=== PATIENT | female | born 1930 | race Caucasian/White ===

== ENCOUNTER 2017-05-22 15:31 | Inpatient (IN) | payer OTHER, MEDICARE ==
[2017-05-22] MEDS ORDERED: Bisacodyl 10 MG SUPP PR PRN (17:10)
[2017-05-22] MEDS ORDERED: FLU VACC TS2017-18 (>65YR) 0.5 ML SYRINGE IM ONE (17:45)
--- NOTE | 2017-05-22 18:31 | HP ---
Admitted to [facility] on 05/22/2017 CHIEF COMPLAINT: Weakness and sore on sacral area. PRESENT ILLNESS: The patient is an 86-year-old white female who lives with her daughter. She is bed and chair confined and at home was on a regular diet. The patient has a history of severe tremors, severe anxiety disorder, and chronic pain from her generalized osteoarthritis. She also has a histor y of an irritable bowel syndrome and diverticular disease of the colon. She has a DNR code status. The patient was hospitalized at [facility] from 05/14/2017 to 05/22/2017. She entered the hospital due to a possible sepsis. Couple of days before admission, she had choked on some coffee s he was drinking with a straw. She later developed a cough with a little yellowish sputum and a tempe rature of 102. She was hospitalized for possible sepsis. Chest x-ray was clear. CT scan of the [facility] showed no evidence of pulmonary embolism. She was found to have a urinary tract infection from Pr oteus mirabilis that was treated with appropriate antibiotics. She also has possibility of aspiratio n by history, but no infiltrate developed on her chest x-ray. The patient had some rectal bleeding, for which she was evaluated by the dye house hand and felt that Dr. Ruth and felt this was p robably hemorrhoidal, this was stopped and her hemoglobin remained stable throughout the admission. She had developed stage I and II breakdown of the sacral area. Her daughter said it had become a lit tle red prior to her admission. The patient improved, but was left extremely weak and was transferre d to [facility] to [facility] for purpose of care of the wound on the sacral area and also t o try get her strength back to where she could be safely transfer to the family and back up where she tolerates a chair with hopes of eventually going back to her home. The patient was seen soon after her admission and had an opportunity to visit with her daughter, Jacqueline , about her condition over the last year at home, which had been good and the events that led up to t he hospitalization. Jacqueline says that she eats good. They do not have any diet nor liquid restrictions . At [facility], they had her on pureed diet with thin liquids, but she would not eat thi s and wants a regular diet. PAST HISTORY: Hospitalized at [facility] from 05/14/2017 to 05/22/2017 for urinary tract infection from Proteus, possible aspiration with no pneumonia, sepsis presentation, rectal bleeding l ikely hemorrhoidal with no recurrence, and stage 2 decubitus over the sacrum. The patient was hospit alized at [facility] for acute bronchitis with asthma and acute exacerbation from 07/15/2015 to 08/13/2015 and for the severe generalized weakness. The patient has a chronic anxiety disorder, his tory of depression, hypertension, generalized osteoarthritis, tremors, diverticular disease of the co patricia, irritable bowel syndrome, history of compression fractures of T5-7 and L2, gastroesophageal refl ux disease, hyperlipidemia. The patient is a 3, para 3. She has had 1 ectopic and two children born by . She has had an intertrochanteric fracture of the left hip, requirin g open reduction internal fixation on 01/05/2009. She has a history of a fracture of the left proxim al humerus that did not require any operative intervention. MEDICATIONS: Abilify 15 mg daily, paroxetine 30 mg daily, Avapro 300 mg daily, KCl 10 mEq daily, Top amax 50 mg b.i.d., clonazepam 0.5 mg every 4 hours as needed. ALLERGIES: CODEINE, IODINE, DEMEROL, MORPHINE, PENICILLIN, and SULFA DRUGS. REVIEW OF SYSTEMS: The patient thinks she is doing okay. She had no complaints. Her daughter was a ble to help with review of system. PULMONARY: She said she has had just a little slight cough, a little mild congestion. CARDIOVASCULAR: She has had no recent chest pain. GASTROINTESTINAL: Prior to hospitalization, she was tolerating a regular diet with thin liquids. Sh e has had no nausea or vomiting, no problems with her bowels. : Incontinent of urine. NEURO/PSYCHIATRIC: The patient has severe tremors, managed with Topamax. She has a history of sever e anxiety disorder that has been controlled with Abilify and clonazepam. HABITS: Alcohol: None. Tobacco: None. SOCIAL HISTORY: The patient is a . She lives with her daughter. CODE STATUS: DNR. PHYSICAL EXAMINATION: GENERAL: Shows an 86-year-old asthenic built white female who is lying in bed. She is awake and brock rt, and she has moderate tremors in her arms and hands. She requires assistance to moving and turnin g in bed. VITAL SIGNS: Shows a temperature of 99.1, pulse 76, respirations 22, O2 sat 99% on room air, blood p ressure 147/72. Her weight is pending. HEAD: Normocephalic and atraumatic. EYES: Pupils were equal, round, and reactive. EARS: TMs are clear. NOSE: Normal. MOUTH AND THROAT: Mucus membranes are moist. Tongue is pink. There are no lesions or ulcers presen t in the mouth. NECK: Carotids are equal and strong, no bruits. LUNGS: Clear except for some coarse rales at the left posterior base. HEART: Regular rate. No murmurs. ABDOMEN: Slightly distended. Bowel sounds are present. Abdomen is soft and nontender with no organ omegaly. EXTREMITIES: No edema. SKIN: The patient has pinkish rash in the inguinal area and bilateral sacral area is pink and has a little superficial breakdown over the midline, this breakdown area is less than a centimeter in diame ter. IMPRESSION: 1. Severe generalized weakness. A. Leaving her bed confined day prior to admission, she was bed confined, tolerating sitting in a ch air and able to assist with transfer. 2. Recent hospitalization at [facility] from 05/14/2016 to 05/22/2017 for urinary tract i nfection from Proteus mirabilis, presenting with a sepsis picture, possible aspiration with no pneum onia and rectal bleeding, probable hemorrhoidal. 3. Stage II decubitus of the sacrum. 4. Candidiasis of intertriginous area of the inguinal region bilateral. 5. Severe chronic anxiety disorder. A. Controlled with Abilify and clonazepam. 6. Depression. 7. Hypertension. 8. Generalized osteoarthritis. 9. Severe tremors. 10. Diverticular disease of the colon. 11. Irritable bowel syndrome. 12. Code status: DNR. PLAN: The patient will be admitted to the hospital, her medications will be continued. Her clonazep am will be changed every 8 hours as needed. We will continue her Abilify and her paroxetine. Care o f the wound on the sacral area will be cleansed daily and apply clotrimazole cream and apply sacral M epilex dressing. Air flotation mattress will be utilized, will turn the patient frequently. Physica l therapy will work with patient along with Occupational Therapy in an effort to get her back to her baseline where she was able to sit up in a chair and assist with transfers. I will place the patient on a mechanical soft diet with thin liquids, sit upright for all meals, small bites, and sips of flu id afterwards and assist to someone to assist her with feeding. The patient's code status is DNR, se e orders.
[2017-05-22] MEDS: Clotrimazole 1% Cream 15 GM TUBE TOP SCH (20:10)
[2017-05-22] MEDS: Topiramate 25 MG TAB PO SCH (20:10)
[2017-05-23 07:15] LABS: ALT (SGPT) 15 U/L (8-55); AST (SGOT) 13 U/L (5-34); Albumin 3.3 g/dL (3.4-4.8); Alkaline Phosphatase 73 U/L (40-150); Anion Gap 10 mmol/L (10-20); BUN (Urea Nitrogen) 25 mg/dL (9.8-20.1); Bilirubin, Total 0.2 mg/dL (0.2-1.2); Calc. Creatinine Clearance 0 mL/min (70-130); Calcium 8.6 mg/dL (7.8-10.44); Carbon Dioxide 33 mmol/L (23-31); Chloride 103 mmol/L (98-107); Estimated GFR-MDRD Greater than 90; Globulin 2.9 g/dL (2.4-3.5); Glucose 91 mg/dL (83-110); Potassium 4.4 mmol/L (3.5-5.1); Protein, Total 6.2 g/dL (6.0-8.3); Sodium 142 mmol/L (136-145)
[2017-05-23 07:19] LABS: #Eosinphils 0.2 thou/uL (0.0-0.7); #Lymphocytes 1.4 thou/uL (1.20-3.40); #Monocytes 0.6 thou/uL (0.11-0.59); #Neutrophils 4.6 thou/uL (1.40-6.50); %Basophils 0.6 % (0.0-1.0); %Eosinophils 3.5 % (0.0-10.0); %Lymphocytes 20.5 % (21.0-51.0); %Monocytes 8.9 % (0.0-10.0); %Neutrophils 66.4 % (42.0-75.0); Hemoglobin 9.7 g/dL (12.0-16.0); Mean Corpuscular Hemoglobin 27.7 pg (27.0-31.0); Mean Corpuscular Volume 89.3 fl (81.0-99.0); Mean Platelet Volume 8.5 fL (7.4-10.4); Platelet Count 184 thou/uL (130-400); RBC Distribution Width 14.3 % (11.5-14.5)
[2017-05-23] MEDS: Enoxaparin Sodium 30 MG/0.3 ML SYRINGE SC SCH (08:50)
[2017-05-23] MEDS: Aripiprazole 10 MG TAB PO SCH (08:50)
[2017-05-23] MEDS: Potassium Chloride 10 MEQ TAB PO SCH (08:51)
[2017-05-23] MEDS: Fluconazole 100 MG TAB PO SCH (08:51)
[2017-05-23] MEDS: PARoxetine 20 MG TAB PO SCH (08:51)
[2017-05-23] MEDS: Topiramate 25 MG TAB PO SCH ×2 (08:51→20:42)
[2017-05-23] MEDS: Clotrimazole 1% Cream 15 GM TUBE TOP SCH ×2 (08:52→20:43)
[2017-05-23] MEDS: clonazePAM 0.5 MG TAB PO PRN ×2 (08:55→20:43)
--- NOTE | 2017-05-23 19:13 | PRG ---
DATE OF SERVICE: 05/23/2017 SUBJECTIVE: During the night, the patient had little drop in her O2 sat 88%, use O2, which brought t his up. This morning, she has complained of some mid abdominal intermittent pain, which she has at h ome from her irritable bowel. OBJECTIVE: GENERAL: The patient is lying in bed. She is alert and appears in no distress. VITAL SIGNS: Her vital signs shows a temperature 98.4, pulse 72, respirations 20, O2 saturation was 100% on 2 liters, and blood pressure 176/79. LUNGS: Her lungs have some expiratory wheeze and rhonchi. HEART: Regular rate. ABDOMEN: Soft, nontender, nondistended. EXTREMITIES: Lower extremities, no edema. LABORATORY DATA: Her lab shows an H&H of 9.7 and 31.2, white cell count 7000 with 66% segs, 21% lymp hocytes, and platelet count 184,000. Sodium 142, potassium 4.4, BUN 25, creatinine 0.57, albumin 3.3 . TSH 2.2. ASSESSMENT: 1. Severe generalized weakness. A. Leaving her bed confined day prior to admission, she was bed confined, tolerating sitting in a chair and able to assist with transfer. B. Unchanged as of 05/23/2017. 2. Recent hospitalization at [facility] from 05/14/2016 to 05/22/2017 for urinary tract i nfection from Proteus mirabilis, presenting with a sepsis picture, possible aspiration with no pneumonia and rectal bleeding, probable hemorrhoidal. 3. Stage II decubitus of the sacrum. 4. Candidiasis of intertriginous area of the inguinal region bilateral. 5. Severe chronic anxiety disorder. A. Controlled with Abilify and clonazepam. 6. Depression. 7. Hypertension. 8. Generalized osteoarthritis. 9. Severe tremors. 10. Diverticular disease of the colon. 11. Irritable bowel syndrome. 12. Code status: DNR. 13. Asthma. A. Mild acute exacerbation as of 05/23/2017. PLAN: Continue present care. Continue physical therapy. We will see the patient and initiate treat ment. Continue the clotrimazole cream and Diflucan. We will place the patient on DuoNebs as regular ly for the asthma, use CO2 as needed.
[2017-05-24] MEDS: Potassium Chloride 10 MEQ TAB PO SCH (08:29)
[2017-05-24] MEDS: Aripiprazole 10 MG TAB PO SCH (08:29)
[2017-05-24] MEDS: Enoxaparin Sodium 30 MG/0.3 ML SYRINGE SC SCH (08:29)
[2017-05-24] MEDS: Clotrimazole 1% Cream 15 GM TUBE TOP SCH ×2 (08:29→20:29)
[2017-05-24] MEDS: PARoxetine 20 MG TAB PO SCH (08:30)
[2017-05-24] MEDS: Topiramate 25 MG TAB PO SCH ×2 (08:30→20:30)
[2017-05-24] MEDS: Fluconazole 100 MG TAB PO SCH (08:30)
[2017-05-24] MEDS: Polyethylene Glycol 3350 17 GM Packet PO SCH (08:31)
--- NOTE | 2017-05-24 12:16 | PRG ---
DATE OF SERVICE: 05/24/2017 SUBJECTIVE: The patient said she had a good night. The patient had no complaints other than needing to have a bowel movement. OBJECTIVE: GENERAL: The patient is lying in bed, alert, appears comfortable and in no distress. VITAL SIGNS: Her temperature is 97.7, her pulse is 99, respirations 19, O2 sat 98%, blood pressure w as 146/109 and this was taken last evening, morning report pending. Suspect this is an error or may have occurred with her tremors. LUNGS: Clear. There is no wheezing. HEART: Regular rate. EXTREMITIES: No edema. ASSESSMENT: 1. Severe generalized weakness. A. Leaving her bed confined day prior to admission, she was bed confined, tolerating sitting in a chair and able to assist with transfer. B. Physical therapy is working with her and getting her up in a chair as of 05/24/2017. 2. Recent hospitalization at [facility] from 05/14/2016 to 05/22/2017 for urinary tract i nfection from Proteus mirabilis, presenting with a sepsis picture, possible aspiration with no pneumonia and rectal bleeding, probable hemorrhoidal. 3. Stage II decubitus of the sacrum. 4. Candidiasis of intertriginous area of the inguinal region bilateral. 5. Severe chronic anxiety disorder. A. Controlled with Abilify and clonazepam. 6. Depression. 7. Hypertension. 8. Generalized osteoarthritis. 9. Severe tremors. 10. Diverticular disease of the colon. 11. Irritable bowel syndrome. 12. Code status: DNR. 13. Asthma. A. Mild acute exacerbation as of 05/23/2017. B. Improved with no wheezing as of 05/24/2017. PLAN: Continue present care, monitor blood pressure. Place the patient on MiraLax regularly since s he has been having some constipation problems.
[2017-05-24] MEDS: clonazePAM 0.5 MG TAB PO PRN ×2 (13:38→21:37)
[2017-05-25] MEDS: Aripiprazole 10 MG TAB PO SCH (08:50)
[2017-05-25] MEDS: Potassium Chloride 10 MEQ TAB PO SCH (08:50)
[2017-05-25] MEDS: Topiramate 25 MG TAB PO SCH ×2 (08:50→20:17)
[2017-05-25] MEDS: Fluconazole 100 MG TAB PO SCH (08:50)
[2017-05-25] MEDS: Polyethylene Glycol 3350 17 GM Packet PO SCH (08:51)
[2017-05-25] MEDS: PARoxetine 20 MG TAB PO SCH (08:51)
[2017-05-25] MEDS: Enoxaparin Sodium 30 MG/0.3 ML SYRINGE SC SCH (08:52)
[2017-05-25] MEDS: Clotrimazole 1% Cream 15 GM TUBE TOP SCH ×2 (08:53→20:17)
[2017-05-25] MEDS: clonazePAM 0.5 MG TAB PO PRN ×2 (08:56→20:18)
[2017-05-26] MEDS: Potassium Chloride 10 MEQ TAB PO SCH (07:49)
[2017-05-26] MEDS: clonazePAM 0.5 MG TAB PO PRN ×2 (07:50→22:24)
[2017-05-26] MEDS: Aripiprazole 10 MG TAB PO SCH (08:51)
[2017-05-26] MEDS: Enoxaparin Sodium 30 MG/0.3 ML SYRINGE SC SCH (08:52)
[2017-05-26] MEDS: Clotrimazole 1% Cream 15 GM TUBE TOP SCH ×2 (08:52→20:50)
[2017-05-26] MEDS: Fluconazole 100 MG TAB PO SCH (08:53)
[2017-05-26] MEDS: Polyethylene Glycol 3350 17 GM Packet PO SCH (08:54)
[2017-05-26] MEDS: PARoxetine 20 MG TAB PO SCH (08:54)
[2017-05-26] MEDS: Topiramate 25 MG TAB PO SCH ×2 (08:55→20:50)
--- NOTE | 2017-05-26 10:36 | PRG ---
DATE OF SERVICE: 05/26/2017 SUBJECTIVE: The patient said she slept good. She is feeling better. She is sitting up for longer p eriods. OBJECTIVE: The patient is lying in bed with the head elevated. She is alert and talkative. She has the chronic tremors in her arms, but she appears comfortable in no distress. Temperature 98, pulse 74, respirations 20, O2 sat 92% on room air, blood pressure 151/70. Lungs are clear. Heart; regular rate. Extremities, no edema. ASSESSMENT: 1. Severe generalized weakness. A. Leaving her bed confined day prior to admission, she was bed confined, tolerating sitting in a chair and able to assist with transfer. B. The patient's strength is improving. She is tolerating sitting up in a chair for longer tracy ods and assisting some with transfer as 05/26/2017. 2. Recent hospitalization at [facility] from 05/14/2016 to 05/22/2017 for urinary tract i nfection from Proteus mirabilis, presenting with a sepsis picture, possible aspiration with no pneumonia and rectal bleeding, probable hemorrhoidal. 3. Stage II decubitus of the sacrum. 4. Candidiasis of intertriginous area of the inguinal region bilateral. 5. Severe chronic anxiety disorder. A. Controlled with Abilify and clonazepam. 6. Depression. 7. Hypertension. 8. Generalized osteoarthritis. 9. Severe tremors. 10. Diverticular disease of the colon. 11. Irritable bowel syndrome. 12. Code status: DNR. 13. Asthma. A. Mild acute exacerbation as of 05/23/2017. B. Improved with no wheezing as of 05/24/2017. C. Stable with resolution of the wheezing as of 05/26/2017. PLAN: Continue present care. Continue physical therapy. Continue the care to the sacral area.
[2017-05-27] MEDS: Polyethylene Glycol 3350 17 GM Packet PO SCH (08:43)
[2017-05-27] MEDS: Enoxaparin Sodium 30 MG/0.3 ML SYRINGE SC SCH (08:43)
[2017-05-27] MEDS: Topiramate 25 MG TAB PO SCH ×2 (08:44→20:20)
[2017-05-27] MEDS: PARoxetine 20 MG TAB PO SCH (08:44)
[2017-05-27] MEDS: Potassium Chloride 10 MEQ TAB PO SCH (08:44)
[2017-05-27] MEDS: clonazePAM 0.5 MG TAB PO PRN ×2 (08:45→20:21)
[2017-05-27] MEDS: Aripiprazole 10 MG TAB PO SCH (08:45)
[2017-05-27] MEDS: Fluconazole 100 MG TAB PO SCH (08:45)
[2017-05-27] MEDS: Clotrimazole 1% Cream 15 GM TUBE TOP SCH ×2 (08:46→20:19)
[2017-05-27] MEDS: Acetaminophen 325 MG TAB PO PRN (20:21)
[2017-05-28] MEDS: Potassium Chloride 10 MEQ TAB PO SCH (08:28)
[2017-05-28] MEDS: Aripiprazole 10 MG TAB PO SCH (08:28)
[2017-05-28] MEDS: Enoxaparin Sodium 30 MG/0.3 ML SYRINGE SC SCH (08:29)
[2017-05-28] MEDS: Clotrimazole 1% Cream 15 GM TUBE TOP SCH ×2 (08:29→20:48)
[2017-05-28] MEDS: Fluconazole 100 MG TAB PO SCH (08:29)
[2017-05-28] MEDS: Polyethylene Glycol 3350 17 GM Packet PO SCH (08:30)
[2017-05-28] MEDS: PARoxetine 20 MG TAB PO SCH (08:30)
[2017-05-28] MEDS: clonazePAM 0.5 MG TAB PO PRN ×2 (08:31→20:47)
[2017-05-28] MEDS: Topiramate 25 MG TAB PO SCH ×2 (08:31→20:47)
--- NOTE | 2017-05-28 10:25 | PRG ---
DATE OF SERVICE: 05/28/2017 SUBJECTIVE: The patient said she is feeling better. Nurses report that the area on the buttock is a ll healing. There is no open area. They are leaving the dressing off and just applying a cream to t hat region. OBJECTIVE: The patient is sitting up in a Veronica chair. She is alert, talkative. She has the tremors present in the arms that are stable. She appears in no distress. Her temperature is 97.8, pulse 74 , respirations 18, O2 sat 94% on room air, blood pressure 133/62. Lungs are clear. Heart; regular r ate. Extremities, no edema. ASSESSMENT: 1. Severe generalized weakness. A. Leaving her bed confined day prior to admission, she was bed confined, tolerating sitting in a chair and able to assist with transfer. B. The patient's strength is improving. She is tolerating sitting up in a chair for longer trayc ods and assisting some with transfer as 05/28/2017. 2. Recent hospitalization at [facility][1] from 05/14/2016 to 05/22/2017 for urinary tract i nfection from Proteus mirabilis, presenting with a sepsis picture, possible aspiration with no pneumonia and rectal bleeding, probable hemorrhoidal. 3. Stage II decubitus of the sacrum. A. Resolving as of 05/28/2017. 4. Candidiasis of intertriginous area of the inguinal region bilateral. 5. Severe chronic anxiety disorder. A. Controlled with Abilify and clonazepam. 6. Depression. 7. Hypertension. 8. Generalized osteoarthritis. 9. Severe tremors. 10. Diverticular disease of the colon. 11. Irritable bowel syndrome. 12. Code status: DNR. 13. Asthma. A. Mild acute exacerbation as of 05/23/2017. B. Asymptomatic, no wheezing as of 05/28/2017. PLAN: Continue present care. Continue physical therapy.
[2017-05-29] MEDS: Enoxaparin Sodium 30 MG/0.3 ML SYRINGE SC SCH (09:36)
[2017-05-29] MEDS: Potassium Chloride 10 MEQ TAB PO SCH (09:36)
[2017-05-29] MEDS: Clotrimazole 1% Cream 15 GM TUBE TOP SCH ×2 (09:36→20:18)
[2017-05-29] MEDS: Aripiprazole 10 MG TAB PO SCH (09:36)
[2017-05-29] MEDS: Polyethylene Glycol 3350 17 GM Packet PO SCH (09:37)
[2017-05-29] MEDS: PARoxetine 20 MG TAB PO SCH (09:37)
[2017-05-29] MEDS: clonazePAM 0.5 MG TAB PO PRN (09:37)
[2017-05-29] MEDS: Topiramate 25 MG TAB PO SCH ×2 (09:37→20:18)
[2017-05-30] MEDS: PARoxetine 20 MG TAB PO SCH (09:03)
[2017-05-30] MEDS: Potassium Chloride 10 MEQ TAB PO SCH (09:05)
[2017-05-30] MEDS: Topiramate 25 MG TAB PO SCH ×2 (09:05→20:26)
[2017-05-30] MEDS: Aripiprazole 10 MG TAB PO SCH (09:06)
[2017-05-30] MEDS: Polyethylene Glycol 3350 17 GM Packet PO SCH (09:06)
[2017-05-30] MEDS: Enoxaparin Sodium 30 MG/0.3 ML SYRINGE SC SCH (09:07)
[2017-05-30] MEDS: Clotrimazole 1% Cream 15 GM TUBE TOP SCH ×2 (11:07→20:26)
--- NOTE | 2017-05-30 14:43 | PRG ---
DATE OF SERVICE: 05/30/2017 SUBJECTIVE: The patient thinks she is doing better. Nurses report no problems. OBJECTIVE: GENERAL: The patient lying in bed. She is alert, talkative, and appears comfortable, in no distress . She has the tremors present, particularly in the upper extremities. VITAL SIGNS: Her vital signs show temperature 98.3, pulse 65, respirations 20, O2 sat 95% on room ai r, blood pressure 134/63. LUNGS: Clear. HEART: Regular rate. ASSESSMENT: 1. Severe generalized weakness. A. Leaving her bed confined day prior to admission, she was bed confined, tolerating sitting in a chair and able to assist with transfer. B. The patient's strength is improving. She is tolerating sitting up in a chair for longer tracy ods and assisting some with transfer as 05/30/2017. 2. Recent hospitalization at [facility] from 05/14/2016 to 05/22/2017 for urinary tract i nfection from Proteus mirabilis, presenting with a sepsis picture, possible aspiration with no pneumonia and rectal bleeding, probable hemorrhoidal. 3. Stage II decubitus of the sacrum. A. Resolving as of 05/28/2017. 4. Candidiasis of intertriginous area of the inguinal region bilateral. 5. Severe chronic anxiety disorder. A. Controlled with Abilify and clonazepam. 6. Depression. 7. Hypertension. 8. Generalized osteoarthritis. 9. Severe tremors. 10. Diverticular disease of the colon. 11. Irritable bowel syndrome. 12. Code status: DNR. 13. Asthma. A. Mild acute exacerbation as of 05/23/2017. B. Asymptomatic, no wheezing as of 05/30/2017. PLAN: Continue present care. Continue physical therapy.
[2017-05-31] MEDS: Potassium Chloride 10 MEQ TAB PO SCH (08:30)
[2017-05-31] MEDS: Topiramate 25 MG TAB PO SCH ×2 (08:30→20:35)
[2017-05-31] MEDS: Polyethylene Glycol 3350 17 GM Packet PO SCH (08:31)
[2017-05-31] MEDS: Aripiprazole 10 MG TAB PO SCH (08:31)
[2017-05-31] MEDS: PARoxetine 20 MG TAB PO SCH (08:31)
[2017-05-31] MEDS: Enoxaparin Sodium 30 MG/0.3 ML SYRINGE SC SCH (08:32)
[2017-05-31] MEDS: Clotrimazole 1% Cream 15 GM TUBE TOP SCH ×2 (10:02→20:35)
[2017-05-31] MEDS: clonazePAM 0.5 MG TAB PO PRN ×2 (13:05→23:36)
[2017-06-01] MEDS: Potassium Chloride 10 MEQ TAB PO SCH (09:08)
[2017-06-01] MEDS: Aripiprazole 10 MG TAB PO SCH (09:08)
[2017-06-01] MEDS: PARoxetine 20 MG TAB PO SCH (09:08)
[2017-06-01] MEDS: Polyethylene Glycol 3350 17 GM Packet PO SCH (09:08)
[2017-06-01] MEDS: Enoxaparin Sodium 30 MG/0.3 ML SYRINGE SC SCH (09:08)
[2017-06-01] MEDS: clonazePAM 0.5 MG TAB PO PRN ×2 (09:09→20:58)
[2017-06-01] MEDS: Topiramate 25 MG TAB PO SCH ×2 (09:09→20:58)
[2017-06-01] MEDS: Clotrimazole 1% Cream 15 GM TUBE TOP SCH ×2 (11:13→20:58)
[2017-06-02] MEDS: Potassium Chloride 10 MEQ TAB PO SCH (07:30)
[2017-06-02] MEDS: Aripiprazole 10 MG TAB PO SCH (08:13)
[2017-06-02] MEDS: PARoxetine 20 MG TAB PO SCH (08:14)
[2017-06-02] MEDS: Enoxaparin Sodium 30 MG/0.3 ML SYRINGE SC SCH (08:15)
[2017-06-02] MEDS: Topiramate 25 MG TAB PO SCH ×2 (08:15→20:09)
[2017-06-02] MEDS: Polyethylene Glycol 3350 17 GM Packet PO SCH (08:15)
[2017-06-02] MEDS: Clotrimazole 1% Cream 15 GM TUBE TOP SCH ×2 (08:16→20:08)
[2017-06-02] MEDS: clonazePAM 0.5 MG TAB PO PRN ×2 (08:23→20:09)
--- NOTE | 2017-06-02 14:34 | PRG ---
DATE OF SERVICE: 06/02/2017 SUBJECTIVE: The patient said that she is feeling alright. She slept well last night. The patient i s tolerating sitting up in a chair, requires total help with transfer. She can assist with pivoting. She is not ambulatory. OBJECTIVE: The patient is lying in bed, appears comfortable in no distress. She has the chronic trevon mors that are unchanged. Her vital signs show a temperature of 98.7, pulse 76, respirations 16, O2 s at 95% on room air, blood pressure 126/71. Lungs are clear. Heart, regular rate. Extremities, no e richardson. The skin over the sacrum, the redness and the little superficial ulceration have completely he aled. She has Mepilex that has been used to just protect this area since there is bony prominence fr om the coccyx in this region. There is no broken area. ASSESSMENT: 1. Severe generalized weakness. A. Leaving her bed confined day prior to admission, she was bed confined, tolerating sitting in a chair and able to assist with transfer. B. Improved, tolerating sitting up in a chair, is maximum assist with transfer, but can help wit h pivot during transfer as of 06/02/2017. 2. Recent hospitalization at [facility] from 05/14/2016 to 05/22/2017 for urinary tract i nfection from Proteus mirabilis, presenting with a sepsis picture, possible aspiration with no pneumonia and rectal bleeding, probable hemorrhoidal. 3. Stage II decubitus of the sacrum. A. Resolved as of 06/02/2017. 4. Candidiasis of intertriginous area of the inguinal region bilateral. 5. Severe chronic anxiety disorder. A. Controlled with Abilify and clonazepam. 6. Depression. 7. Hypertension. 8. Generalized osteoarthritis. 9. Severe tremors. 10. Diverticular disease of the colon. 11. Irritable bowel syndrome. 12. Code status: DNR. 13. Asthma. A. Mild acute exacerbation as of 05/23/2017. B. Remains asymptomatic as of 06/02/2017. PLAN: Continue to protect the sacral area with Mepilex. Continue physical therapy.
[2017-06-03] MEDS: Polyethylene Glycol 3350 17 GM Packet PO SCH (08:08)
[2017-06-03] MEDS: Potassium Chloride 10 MEQ TAB PO SCH (08:08)
[2017-06-03] MEDS: Aripiprazole 10 MG TAB PO SCH (08:09)
[2017-06-03] MEDS: Acetaminophen 325 MG TAB PO PRN (08:09)
[2017-06-03] MEDS: clonazePAM 0.5 MG TAB PO PRN ×2 (08:11→20:42)
[2017-06-03] MEDS: PARoxetine 20 MG TAB PO SCH (08:11)
[2017-06-03] MEDS: Enoxaparin Sodium 30 MG/0.3 ML SYRINGE SC SCH (08:12)
[2017-06-03] MEDS: Topiramate 25 MG TAB PO SCH ×2 (08:13→20:41)
[2017-06-03] MEDS: Clotrimazole 1% Cream 15 GM TUBE TOP SCH ×2 (08:13→20:40)
[2017-06-04] MEDS: Potassium Chloride 10 MEQ TAB PO SCH (09:22)
[2017-06-04] MEDS: Aripiprazole 10 MG TAB PO SCH (09:23)
[2017-06-04] MEDS: Enoxaparin Sodium 30 MG/0.3 ML SYRINGE SC SCH (09:23)
[2017-06-04] MEDS: Clotrimazole 1% Cream 15 GM TUBE TOP SCH ×2 (09:23→20:22)
[2017-06-04] MEDS: clonazePAM 0.5 MG TAB PO PRN (09:24)
[2017-06-04] MEDS: Topiramate 25 MG TAB PO SCH ×2 (09:24→20:22)
[2017-06-04] MEDS: PARoxetine 20 MG TAB PO SCH (09:24)
[2017-06-04] MEDS: Polyethylene Glycol 3350 17 GM Packet PO SCH (09:24)
--- NOTE | 2017-06-04 15:39 | PRG ---
DATE OF SERVICE: 06/04/2017 SUBJECTIVE: The patient had no complaints. Nurses report no change in patient. OBJECTIVE: GENERAL: The patient is lying in bed, alert, and talkative. She has her tremors in her upper body, but these are stable. VITAL SIGNS: Shows a temperature of 97.9, pulse 86, respirations 22, O2 sat 95% on room air, blood p ressure 157/87. LUNGS: Clear. HEART: Regular rate. ASSESSMENT: 1. Severe generalized weakness. A. Leaving her bed confined day prior to admission, she was bed confined, tolerating sitting in a chair and able to assist with transfer. B. Gradual improvement. Tolerating sitting up in the chair, but requires maximum assistance wit h transfer as of 06/04/2017. 2. Recent hospitalization at [facility] from 05/14/2016 to 05/22/2017 for urinary tract i nfection from Proteus mirabilis, presenting with a sepsis picture, possible aspiration with no pneumonia and rectal bleeding, probable hemorrhoidal. 3. Stage II decubitus of the sacrum. A. Resolved as of 06/02/2017. 4. Candidiasis of intertriginous area of the inguinal region bilateral. 5. Severe chronic anxiety disorder. A. Controlled with Abilify and clonazepam. 6. Depression. 7. Hypertension. 8. Generalized osteoarthritis. 9. Severe tremors. 10. Diverticular disease of the colon. 11. Irritable bowel syndrome. 12. Code status: DNR. 13. Asthma. A. Mild acute exacerbation as of 05/23/2017. B. Remains asymptomatic as of 06/04/2017. PLAN: Continue present care. Continue physical therapy.
[2017-06-05] MEDS: Enoxaparin Sodium 30 MG/0.3 ML SYRINGE SC SCH (08:49)
[2017-06-05] MEDS: Polyethylene Glycol 3350 17 GM Packet PO SCH (08:50)
[2017-06-05] MEDS: PARoxetine 20 MG TAB PO SCH (08:50)
[2017-06-05] MEDS: Aripiprazole 10 MG TAB PO SCH (08:50)
[2017-06-05] MEDS: Topiramate 25 MG TAB PO SCH ×2 (08:50→20:41)
[2017-06-05] MEDS: Potassium Chloride 10 MEQ TAB PO SCH (08:50)
[2017-06-05] MEDS: Clotrimazole 1% Cream 15 GM TUBE TOP SCH ×2 (08:51→20:39)
[2017-06-05] MEDS: clonazePAM 0.5 MG TAB PO PRN (19:30)
[2017-06-05] MEDS: Acetaminophen 325 MG TAB PO PRN (19:30)
[2017-06-06] MEDS: Acetaminophen 325 MG TAB PO PRN (06:00)
[2017-06-06] MEDS: Enoxaparin Sodium 30 MG/0.3 ML SYRINGE SC SCH (09:38)
[2017-06-06] MEDS: Polyethylene Glycol 3350 17 GM Packet PO SCH (09:38)
[2017-06-06] MEDS: PARoxetine 20 MG TAB PO SCH (09:39)
[2017-06-06] MEDS: Potassium Chloride 10 MEQ TAB PO SCH (09:39)
[2017-06-06] MEDS: Aripiprazole 10 MG TAB PO SCH (09:40)
[2017-06-06] MEDS: Topiramate 25 MG TAB PO SCH ×2 (09:40→20:10)
[2017-06-06] MEDS: Clotrimazole 1% Cream 15 GM TUBE TOP SCH ×2 (09:40→20:10)
--- NOTE | 2017-06-06 17:20 | PRG ---
DATE OF SERVICE: 06/06/2017 SUBJECTIVE: The patient thinks she is doing good. She has no complaints. She has been eating good. OBJECTIVE: GENERAL: The patient is sitting up in bed, eating breakfast. She has a lady assisting her to eat. She appears very comfortable. She has tremors in her arms, hands and a little in her face and head. VITAL SIGNS: Shows a temperature 98.1, pulse 80, respirations 18, O2 sat 92%, blood pressure 101/55. LUNGS: Clear. HEART: Regular rate. ASSESSMENT: 1. Severe generalized weakness. A. Leaving her bed confined day prior to admission, she was bed confined, tolerating sitting in a chair and able to assist with transfer. B. Gradual improvement. Tolerating sitting up in the chair, but requires maximum assistance wit h transfer as of 06/06/2017. 2. Recent hospitalization at [facility] from 05/14/2016 to 05/22/2017 for urinary tract i nfection from Proteus mirabilis, presenting with a sepsis picture, possible aspiration with no pneumonia and rectal bleeding, probable hemorrhoidal. 3. Stage II decubitus of the sacrum. A. Resolved as of 06/02/2017. 4. Candidiasis of intertriginous area of the inguinal region bilateral. 5. Severe chronic anxiety disorder. A. Controlled with Abilify and clonazepam. 6. Depression. 7. Hypertension. 8. Generalized osteoarthritis. 9. Severe tremors. 10. Diverticular disease of the colon. 11. Irritable bowel syndrome. 12. Code status: DNR. 13. Asthma. A. Mild acute exacerbation as of 05/23/2017. B. Remains asymptomatic as of 06/06/2017. PLAN: The patient's condition is stable. We will continue physical therapy.
[2017-06-06] MEDS: clonazePAM 0.5 MG TAB PO PRN (20:09)
[2017-06-07] MEDS: Clotrimazole 1% Cream 15 GM TUBE TOP SCH ×2 (08:21→21:30)
[2017-06-07] MEDS: Enoxaparin Sodium 30 MG/0.3 ML SYRINGE SC SCH (08:21)
[2017-06-07] MEDS: Polyethylene Glycol 3350 17 GM Packet PO SCH (08:21)
[2017-06-07] MEDS: PARoxetine 20 MG TAB PO SCH (08:22)
[2017-06-07] MEDS: Aripiprazole 10 MG TAB PO SCH (08:22)
[2017-06-07] MEDS: Potassium Chloride 10 MEQ TAB PO SCH (08:22)
[2017-06-07] MEDS: Topiramate 25 MG TAB PO SCH ×2 (08:23→21:30)
[2017-06-07] MEDS: clonazePAM 0.5 MG TAB PO PRN ×2 (08:44→17:22)
[2017-06-07] MEDS ORDERED: Sodium Chloride Irrig Solution 250 ML BOT ONE (14:10)
[2017-06-08] MEDS: clonazePAM 0.5 MG TAB PO PRN ×3 (01:15→21:55)
[2017-06-08] MEDS: Acetaminophen 325 MG TAB PO PRN ×3 (06:11→22:36)
[2017-06-08] MEDS: Aripiprazole 10 MG TAB PO SCH (08:21)
[2017-06-08] MEDS: PARoxetine 20 MG TAB PO SCH (08:22)
[2017-06-08] MEDS: Topiramate 25 MG TAB PO SCH ×2 (08:22→21:27)
[2017-06-08] MEDS: Potassium Chloride 10 MEQ TAB PO SCH (08:22)
[2017-06-08] MEDS: Polyethylene Glycol 3350 17 GM Packet PO SCH (08:23)
[2017-06-08] MEDS: Enoxaparin Sodium 30 MG/0.3 ML SYRINGE SC SCH (08:23)
[2017-06-08] MEDS: Clotrimazole 1% Cream 15 GM TUBE TOP SCH ×2 (08:23→21:26)
[2017-06-09] MEDS: Potassium Chloride 10 MEQ TAB PO SCH (08:01)
[2017-06-09] MEDS: Polyethylene Glycol 3350 17 GM Packet PO SCH (08:01)
[2017-06-09] MEDS: Aripiprazole 10 MG TAB PO SCH (08:01)
[2017-06-09] MEDS: Topiramate 25 MG TAB PO SCH ×2 (08:02→20:33)
[2017-06-09] MEDS: PARoxetine 20 MG TAB PO SCH (08:02)
[2017-06-09] MEDS: Enoxaparin Sodium 30 MG/0.3 ML SYRINGE SC SCH (08:03)
[2017-06-09] MEDS: Clotrimazole 1% Cream 15 GM TUBE TOP SCH ×2 (08:05→20:35)
[2017-06-09] MEDS: clonazePAM 0.5 MG TAB PO PRN ×2 (08:25→20:35)
[2017-06-10] MEDS: Acetaminophen 325 MG TAB PO PRN ×2 (07:52→21:14)
[2017-06-10] MEDS: clonazePAM 0.5 MG TAB PO PRN ×2 (07:52→20:45)
[2017-06-10] MEDS: Potassium Chloride 10 MEQ TAB PO SCH (07:55)
[2017-06-10] MEDS: Aripiprazole 10 MG TAB PO SCH (08:13)
[2017-06-10] MEDS: Polyethylene Glycol 3350 17 GM Packet PO SCH (08:13)
[2017-06-10] MEDS: Topiramate 25 MG TAB PO SCH ×2 (08:14→20:45)
[2017-06-10] MEDS: PARoxetine 20 MG TAB PO SCH (08:14)
[2017-06-10] MEDS: Enoxaparin Sodium 30 MG/0.3 ML SYRINGE SC SCH (08:19)
[2017-06-10] MEDS: Clotrimazole 1% Cream 15 GM TUBE TOP SCH ×2 (08:20→20:46)
--- NOTE | 2017-06-10 11:06 | PRG ---
DATE OF SERVICE: 06/10/2017 SUBJECTIVE: The patient said she is doing good. Physical therapy is working with her. She requires minimum assistance to go from a supine to a sitting position. She has maximum assist for transfer t o bed to a chair. She is able to help stand and pivot and step over. She is making very gradual slo w improvement. OBJECTIVE: The patient is sitting up in a chair. She appears comfortable, in no distress. Her trem ors are unchanged. Her temp is 97.4, pulse 94, respirations 20, O2 sat 93%, blood pressure 117/66. Lungs are clear. Heart, regular rate. ASSESSMENT: 1. Severe generalized weakness. A. Leaving her bed confined day prior to admission, she was bed confined, tolerating sitting in a chair and able to assist with transfer. B. Gradual improvement, tolerating sitting up in a chair. Able to assist with transfer from bed to chair with a pivot as of 06/10/2017. 2. Recent hospitalization at [facility] from 05/14/2016 to 05/22/2017 for urinary tract i nfection from Proteus mirabilis, presenting with a sepsis picture, possible aspiration with no pneumonia and rectal bleeding, probable hemorrhoidal. 3. Stage II decubitus of the sacrum. A. Resolved as of 06/02/2017. 4. Candidiasis of intertriginous area of the inguinal region bilateral. 5. Severe chronic anxiety disorder. A. Controlled with Abilify and clonazepam. 6. Depression. 7. Hypertension. 8. Generalized osteoarthritis. 9. Severe tremors. 10. Diverticular disease of the colon. 11. Irritable bowel syndrome. 12. Code status: DNR. 13. Asthma. A. Mild acute exacerbation as of 05/23/2017. B. Remains asymptomatic as of 06/10/2017. PLAN: The patient is stable. She is making some very gradual slow improvement with her strength and sitting capability and some mild improvement with transfer. Continue physical therapy.
[2017-06-11] MEDS: Polyethylene Glycol 3350 17 GM Packet PO SCH (08:18)
[2017-06-11] MEDS: Aripiprazole 10 MG TAB PO SCH (08:19)
[2017-06-11] MEDS: Topiramate 25 MG TAB PO SCH ×2 (08:19→20:41)
[2017-06-11] MEDS: PARoxetine 20 MG TAB PO SCH (08:19)
[2017-06-11] MEDS: Potassium Chloride 10 MEQ TAB PO SCH (08:20)
[2017-06-11] MEDS: Enoxaparin Sodium 30 MG/0.3 ML SYRINGE SC SCH (08:22)
[2017-06-11] MEDS: clonazePAM 0.5 MG TAB PO PRN ×2 (08:37→18:14)
[2017-06-11] MEDS: Acetaminophen 325 MG TAB PO PRN ×2 (10:12→18:14)
--- NOTE | 2017-06-11 11:48 | PRG ---
DATE OF SERVICE: 06/11/2017 SUBJECTIVE: The patient said she is doing good today. She has already worked earlier this morning w [facility] physical therapy. OBJECTIVE: GENERAL: Patient is up in a Veronica chair in a semi reclined position. She looks very comfortable, was talkative and she does have tremors that are unchanged. VITAL SIGNS: Show a temperature 97.3, pulse 79, respirations 18, O2 sat 95% on room air, blood press ure 132/77. LUNGS: Clear. HEART: Regular rate. ASSESSMENT: 1. Severe generalized weakness. A. Leaving her bed confined day prior to admission, she was bed confined, tolerating sitting in a chair and able to assist with transfer. B. Gradual improvement, tolerating sitting up in a chair. Able to assist with transfer from bed to chair with a pivot as of 06/11/2017. 2. Recent hospitalization at [facility] from 05/14/2016 to 05/22/2017 for urinary tract i nfection from Proteus mirabilis, presenting with a sepsis picture, possible aspiration with no pneumonia and rectal bleeding, probable hemorrhoidal. 3. Stage II decubitus of the sacrum. A. Resolved as of 06/02/2017. 4. Candidiasis of intertriginous area of the inguinal region bilateral. 5. Severe chronic anxiety disorder. A. Controlled with Abilify and clonazepam. 6. Depression. A. Controlled as of 06/11/2017. 7. Hypertension. 8. Generalized osteoarthritis. 9. Severe tremors. 10. Diverticular disease of the colon. 11. Irritable bowel syndrome. 12. Code status: DNR. 13. Asthma. A. Mild acute exacerbation as of 05/23/2017. B. Remains asymptomatic as of 06/11/2017. PLAN: Continue physical therapy.
[2017-06-11] MEDS: Clotrimazole 1% Cream 15 GM TUBE TOP SCH (20:42)
[2017-06-12] MEDS: clonazePAM 0.5 MG TAB PO PRN ×2 (07:49→16:50)
[2017-06-12] MEDS: Acetaminophen 325 MG TAB PO PRN ×2 (07:49→19:27)
[2017-06-12] MEDS: Clotrimazole 1% Cream 15 GM TUBE TOP SCH ×3 (08:47→19:30)
[2017-06-12] MEDS: Potassium Chloride 10 MEQ TAB PO SCH (08:47)
[2017-06-12] MEDS: Aripiprazole 10 MG TAB PO SCH (08:48)
[2017-06-12] MEDS: Enoxaparin Sodium 30 MG/0.3 ML SYRINGE SC SCH (08:48)
[2017-06-12] MEDS: PARoxetine 20 MG TAB PO SCH (08:50)
[2017-06-12] MEDS: Topiramate 25 MG TAB PO SCH ×3 (08:51→21:00)
[2017-06-12] MEDS: Polyethylene Glycol 3350 17 GM Packet PO SCH (08:51)
[2017-06-13] MEDS: Enoxaparin Sodium 30 MG/0.3 ML SYRINGE SC SCH (09:08)
[2017-06-13] MEDS: Topiramate 25 MG TAB PO SCH ×2 (09:09→20:37)
[2017-06-13] MEDS: Acetaminophen 325 MG TAB PO PRN ×2 (09:09→14:09)
[2017-06-13] MEDS: clonazePAM 0.5 MG TAB PO PRN ×2 (09:10→17:44)
[2017-06-13] MEDS: Potassium Chloride 10 MEQ TAB PO SCH (09:10)
[2017-06-13] MEDS: PARoxetine 20 MG TAB PO SCH (09:11)
[2017-06-13] MEDS: Polyethylene Glycol 3350 17 GM Packet PO SCH (09:11)
[2017-06-13] MEDS: Aripiprazole 10 MG TAB PO SCH (09:13)
[2017-06-13] MEDS: Clotrimazole 1% Cream 15 GM TUBE TOP SCH ×2 (09:19→20:37)
[2017-06-14] MEDS: Acetaminophen 325 MG TAB PO PRN ×2 (02:02→07:51)
[2017-06-14] MEDS: clonazePAM 0.5 MG TAB PO PRN ×3 (02:03→22:49)
--- NOTE | 2017-06-14 08:52 | PRG ---
DATE OF SERVICE: 06/14/2017 SUBJECTIVE: The patient said she is doing better. The patient has been refusing her DuoNeb treatmen ts. OBJECTIVE: The patient is lying in bed. She is alert, talkative, and appears comfortable and in no distress. Her temp 98.8, pulse 83, respirations 20, O2 sat 95% on room air, blood pressure 122/68. Lungs are clear. Heart, regular rate. Extremities, no edema. Neuro; the patient is alert, has gene ralized weakness and the tremors which are stable. ASSESSMENT: 1. Severe generalized weakness. A. Leaving her bed confined day prior to admission, she was bed confined, tolerating sitting in a chair and able to assist with transfer. B. Gradual improvement as of 06/14/2017. 2. Recent hospitalization at [facility] from 05/14/2016 to 05/22/2017 for urinary tract i nfection from Proteus mirabilis, presenting with a sepsis picture, possible aspiration with no pneumonia and rectal bleeding, probable hemorrhoidal. 3. Stage II decubitus of the sacrum. A. Resolved as of 06/02/2017. 4. Candidiasis of intertriginous area of the inguinal region bilateral. 5. Severe chronic anxiety disorder. A. Controlled with Abilify and clonazepam. 6. Depression. A. Controlled as of 06/11/2017. 7. Hypertension. 8. Generalized osteoarthritis. 9. Severe tremors. 10. Diverticular disease of the colon. 11. Irritable bowel syndrome. 12. Code status: DNR. 13. Asthma. A. Mild acute exacerbation as of 05/23/2017. B. Remains asymptomatic as of 06/14/2017. PLAN: Continue physical therapy. Will stop the scheduled and DuoNeb treatments and use q.4h. only a s needed.
[2017-06-14] MEDS: Enoxaparin Sodium 30 MG/0.3 ML SYRINGE SC SCH (08:58)
[2017-06-14] MEDS: Aripiprazole 10 MG TAB PO SCH (08:58)
[2017-06-14] MEDS: Topiramate 25 MG TAB PO SCH ×2 (08:59→20:40)
[2017-06-14] MEDS: Polyethylene Glycol 3350 17 GM Packet PO SCH (08:59)
[2017-06-14] MEDS: PARoxetine 20 MG TAB PO SCH (08:59)
[2017-06-14] MEDS: Potassium Chloride 10 MEQ TAB PO SCH (09:00)
[2017-06-14 18:48] VITALS: BMI 15.4
[2017-06-14] MEDS: Clotrimazole 1% Cream 15 GM TUBE TOP SCH (20:40)
[2017-06-15] MEDS: Acetaminophen 325 MG TAB PO PRN ×3 (03:42→20:32)
[2017-06-15 05:30] LABS: Anion Gap 14 mmol/L (10-20); BUN (Urea Nitrogen) 16 mg/dL (9.8-20.1); Calc. Creatinine Clearance 38 mL/min (70-130); Calcium 8.5 mg/dL (7.8-10.44); Carbon Dioxide 23 mmol/L (23-31); Chloride 108 mmol/L (98-107); Estimated GFR-MDRD 88; Glucose 92 mg/dL (83-110); Hemoglobin 8.2 g/dL (12.0-16.0); Mean Corpuscular HGB CONC 30.8 g/dL (32.0-36.0); Mean Corpuscular Hemoglobin 26.8 pg (27.0-31.0); Mean Corpuscular Volume 86.9 fl (81.0-99.0); Mean Platelet Volume 7.1 fL (7.4-10.4); Platelet Count 191 thou/uL (130-400); RBC Distribution Width 14.3 % (11.5-14.5); Red Blood Cell (RBC) Count 3.07 mill/uL (4.20-5.40); Sodium 141 mmol/L (136-145); White Blood Cell (WBC) Count 7.2 thou/uL (4.8-10.8)
[2017-06-15 05:31] LABS: Anisocytosis SLIGHT = 6-15 cells (100X) (0-5/hpf); Eosinophils 2 % (0-10); Hypochromia MODERATE=16-30 cells (100X) (0-5/hpf); Lymphocytes 20 % (21-51); MDiff Complete? YES; Monocytes 7 % (0-10); Neutrophil 71 % (42-75); PLT Morphology Comment Appears Adequate; Poikilocytosis SLIGHT = 6-15 cells (100X) (0-5/hpf); RBC Morphology Abnormal
[2017-06-15] MEDS: Clotrimazole 1% Cream 15 GM TUBE TOP SCH ×3 (07:14→20:31)
[2017-06-15] MEDS: clonazePAM 0.5 MG TAB PO PRN ×2 (07:54→20:32)
[2017-06-15] MEDS: Topiramate 25 MG TAB PO SCH ×2 (09:01→20:32)
[2017-06-15] MEDS: Potassium Chloride 10 MEQ TAB PO SCH (09:01)
[2017-06-15] MEDS: PARoxetine 20 MG TAB PO SCH (09:01)
[2017-06-15] MEDS: Aripiprazole 10 MG TAB PO SCH (09:01)
[2017-06-15] MEDS: Polyethylene Glycol 3350 17 GM Packet PO SCH (09:01)
[2017-06-15] MEDS: Enoxaparin Sodium 30 MG/0.3 ML SYRINGE SC SCH (09:01)
[2017-06-16] MEDS: Enoxaparin Sodium 30 MG/0.3 ML SYRINGE SC SCH (08:22)
[2017-06-16] MEDS: Potassium Chloride 10 MEQ TAB PO SCH (08:23)
[2017-06-16] MEDS: Polyethylene Glycol 3350 17 GM Packet PO SCH (08:23)
[2017-06-16] MEDS: Aripiprazole 10 MG TAB PO SCH (08:23)
[2017-06-16] MEDS: PARoxetine 20 MG TAB PO SCH (08:24)
[2017-06-16] MEDS: Clotrimazole 1% Cream 15 GM TUBE TOP SCH ×2 (08:24→20:51)
[2017-06-16] MEDS: Topiramate 25 MG TAB PO SCH ×2 (08:24→20:50)
[2017-06-16] MEDS: clonazePAM 0.5 MG TAB PO PRN ×2 (09:09→16:33)
--- NOTE | 2017-06-16 11:44 | PRG ---
DATE OF SERVICE: 06/16/2017 SUBJECTIVE: The patient thinks she is doing a little better. She said this morning she is feeling f ine, had no complaints. OBJECTIVE: The patient is lying in bed, alert, talkative, appears comfortable. She has her chronic tremors in the arms, the body and the head. Her vital signs show a temperature of 98.1, pulse 87, re spirations 20, O2 saturation 94%, blood pressure 119/77. Lungs are clear. Heart, regular rate. Ext remities, no edema. ASSESSMENT: 1. Severe generalized weakness. A. Leaving her bed confined day prior to admission, she was bed confined, tolerating sitting in a chair and able to assist with transfer. B. Gradual improvement as of 06/16/2017. 2. Recent hospitalization at [facility] from 05/14/2016 to 05/22/2017 for urinary tract i nfection from Proteus mirabilis, presenting with a sepsis picture, possible aspiration with no pneumonia and rectal bleeding, probable hemorrhoidal. 3. Stage II decubitus of the sacrum. A. Resolved as of 06/02/2017. 4. Candidiasis of intertriginous area of the inguinal region bilateral. 5. Severe chronic anxiety disorder. A. Controlled with Abilify and clonazepam. 6. Depression. A. Controlled as of 06/16/2017. 7. Hypertension. 8. Generalized osteoarthritis. 9. Severe tremors. 10. Diverticular disease of the colon. 11. Irritable bowel syndrome. 12. Code status: DNR. 13. Asthma. A. Mild acute exacerbation as of 05/23/2017. B. Remains asymptomatic as of 06/16/2017. PLAN: Continue present care. Will visit with family about arrangements for her care in the home. Randy ramesh shoot for within the next week. This will allow a little more time for physical therapy to w ork with her.
[2017-06-16] MEDS: Acetaminophen 325 MG TAB PO PRN ×2 (15:22→20:51)
[2017-06-17] MEDS: clonazePAM 0.5 MG TAB PO PRN ×3 (00:30→20:26)
[2017-06-17] MEDS: Enoxaparin Sodium 30 MG/0.3 ML SYRINGE SC SCH (09:05)
[2017-06-17] MEDS: Potassium Chloride 10 MEQ TAB PO SCH (09:06)
[2017-06-17] MEDS: Aripiprazole 10 MG TAB PO SCH (09:06)
[2017-06-17] MEDS: Polyethylene Glycol 3350 17 GM Packet PO SCH (09:06)
[2017-06-17] MEDS: PARoxetine 20 MG TAB PO SCH (09:06)
[2017-06-17] MEDS: Topiramate 25 MG TAB PO SCH ×2 (09:07→20:25)
[2017-06-17] MEDS: Clotrimazole 1% Cream 15 GM TUBE TOP SCH ×2 (09:07→20:25)
[2017-06-18] MEDS: Potassium Chloride 10 MEQ TAB PO SCH (08:54)
[2017-06-18] MEDS: Aripiprazole 10 MG TAB PO SCH (08:54)
[2017-06-18] MEDS: Clotrimazole 1% Cream 15 GM TUBE TOP SCH ×2 (08:55→19:58)
[2017-06-18] MEDS: Enoxaparin Sodium 30 MG/0.3 ML SYRINGE SC SCH (08:55)
[2017-06-18] MEDS: Topiramate 25 MG TAB PO SCH ×2 (08:56→19:58)
[2017-06-18] MEDS: PARoxetine 20 MG TAB PO SCH (08:56)
[2017-06-18] MEDS: Polyethylene Glycol 3350 17 GM Packet PO SCH (08:56)
--- NOTE | 2017-06-18 11:09 | PRG ---
DATE OF SERVICE: 06/18/2017 SUBJECTIVE: The patient has no complaints. The patient has been eating good. OBJECTIVE: The patient is sitting up in her Veronica chair. She is alert, appears comfortable, in no di stress. She has the tremors, particularly of the upper extremities that are unchanged. Vital signs show a temperature 99, pulse 114, respirations 16, O2 sat 93% on room air, blood pressure 115/78. Tyra ngs are clear. Heart, regular rate. ASSESSMENT: 1. Severe generalized weakness. A. Leaving her bed confined day prior to admission, she was bed confined, tolerating sitting in a chair and able to assist with transfer. B. Stable as of 06/18/2017. 2. Recent hospitalization at [facility] from 05/14/2016 to 05/22/2017 for urinary tract i nfection from Proteus mirabilis, presenting with a sepsis picture, possible aspiration with no pneumonia and rectal bleeding, probable hemorrhoidal. 3. Stage II decubitus of the sacrum. A. Resolved as of 06/02/2017. 4. Candidiasis of intertriginous area of the inguinal region bilateral. 5. Severe chronic anxiety disorder. A. Controlled with Abilify and clonazepam. 6. Depression. A. Controlled as of 06/16/2017. 7. Hypertension. 8. Generalized osteoarthritis. 9. Severe tremors. 10. Diverticular disease of the colon. 11. Irritable bowel syndrome. 12. Code status: DNR. 13. Asthma. A. Mild acute exacerbation as of 05/23/2017. B. Remains asymptomatic as of 06/17/2017. PLAN: Continue present care. Continue physical therapy. Anticipate discharge on Wednesday06/21/2017.
[2017-06-18] MEDS: clonazePAM 0.5 MG TAB PO PRN (15:32)
[2017-06-19] MEDS: Acetaminophen 325 MG TAB PO PRN ×2 (00:29→22:53)
[2017-06-19] MEDS: clonazePAM 0.5 MG TAB PO PRN ×2 (00:29→22:53)
[2017-06-19] MEDS: Potassium Chloride 10 MEQ TAB PO SCH (08:38)
[2017-06-19] MEDS: Polyethylene Glycol 3350 17 GM Packet PO SCH (08:38)
[2017-06-19] MEDS: Aripiprazole 10 MG TAB PO SCH (08:38)
[2017-06-19] MEDS: Enoxaparin Sodium 30 MG/0.3 ML SYRINGE SC SCH (08:39)
[2017-06-19] MEDS: Clotrimazole 1% Cream 15 GM TUBE TOP SCH ×2 (08:39→21:00)
[2017-06-19] MEDS: PARoxetine 20 MG TAB PO SCH (08:39)
[2017-06-19] MEDS: Topiramate 25 MG TAB PO SCH ×2 (08:39→20:57)
[2017-06-20] MEDS: clonazePAM 0.5 MG TAB PO PRN ×2 (08:55→19:59)
[2017-06-20] MEDS: Aripiprazole 10 MG TAB PO SCH (08:56)
[2017-06-20] MEDS: Topiramate 25 MG TAB PO SCH ×2 (08:56→20:00)
[2017-06-20] MEDS: PARoxetine 20 MG TAB PO SCH (08:56)
[2017-06-20] MEDS: Potassium Chloride 10 MEQ TAB PO SCH (08:56)
[2017-06-20] MEDS: Polyethylene Glycol 3350 17 GM Packet PO SCH (08:57)
[2017-06-20] MEDS: Clotrimazole 1% Cream 15 GM TUBE TOP SCH ×2 (08:57→20:00)
[2017-06-20] MEDS: Enoxaparin Sodium 30 MG/0.3 ML SYRINGE SC SCH (08:57)
[2017-06-20] MEDS: Acetaminophen 325 MG TAB PO PRN ×2 (08:57→20:00)
--- NOTE | 2017-06-20 15:31 | PRG ---
DATE OF SERVICE: 06/20/2017 SUBJECTIVE: The patient said she did not feel very well this morning. Nurse had noted she had had j ust a little wheezing this morning. The patient had no specific complaints. OBJECTIVE: GENERAL: The patient lying in bed. She is alert and appears in no distress. VITAL SIGNS: Her temp 98.6, pulse 108, respirations are 18, O2 sat 95% on room air, blood pressure 1 17/76. LUNGS: Clear. There is no wheezing. HEART: Regular rate. EXTREMITIES: No edema. ASSESSMENT: 1. Severe generalized weakness. A. Leaving her bed confined day prior to admission, she was bed confined, tolerating sitting in a chair and able to assist with transfer. B. Stable as of 06/20/2017. 2. Recent hospitalization at [facility] from 05/14/2016 to 05/22/2017 for urinary tract i nfection from Proteus mirabilis, presenting with a sepsis picture, possible aspiration with no pneumonia and rectal bleeding, probable hemorrhoidal. 3. Stage II decubitus of the sacrum. A. Resolved as of 06/02/2017. 4. Candidiasis of intertriginous area of the inguinal region bilateral. 5. Severe chronic anxiety disorder. A. Controlled with Abilify and clonazepam. 6. Depression. A. Controlled as of 06/16/2017. 7. Hypertension. 8. Generalized osteoarthritis. 9. Severe tremors. 10. Diverticular disease of the colon. 11. Irritable bowel syndrome. 12. Code status: DNR. 13. Asthma. A. Mild acute exacerbation as of 05/23/2017. B. The patient had some mild wheezing this morning, but it has cleared after nebulizer treatment as of 06/20/2017. PLAN: Continue present care and anticipate discharge tomorrow.
[2017-06-21] MEDS: clonazePAM 0.5 MG TAB PO PRN ×2 (04:40→14:09)
[2017-06-21] MEDS: Potassium Chloride 10 MEQ TAB PO SCH (09:10)
[2017-06-21] MEDS: Aripiprazole 10 MG TAB PO SCH (09:11)
[2017-06-21] MEDS: Enoxaparin Sodium 30 MG/0.3 ML SYRINGE SC SCH (09:11)
[2017-06-21] MEDS: Clotrimazole 1% Cream 15 GM TUBE TOP SCH (09:11)
[2017-06-21 09:12] VITALS: BP 140/78; TEMP 98.3
[2017-06-21] MEDS: PARoxetine 20 MG TAB PO SCH (09:12)
[2017-06-21] MEDS: Polyethylene Glycol 3350 17 GM Packet PO SCH (09:12)
[2017-06-21] MEDS: Topiramate 25 MG TAB PO SCH (09:12)
--- NOTE | 2017-06-21 10:20 | DIS ---
DATE OF ADMISSION: 05/22/2017, to extended care DATE OF DISCHARGE: 06/21/2017 FINAL DIAGNOSES: 1. Severe generalized weakness. A. Bed and chair confined. B. Tolerates sitting up in a chair and can assist with transfer pivoting with her legs. C. Nonambulatory. 2. Recent hospitalization at [facility] from 05/14/2016 to 05/22/2017 for urinary tract i nfection from Proteus mirabilis, presenting with a sepsis picture, possible aspiration with no pneumonia and rectal bleeding, probable hemorrhoidal. 3. Stage II decubitus of the sacrum. A. Resolved as of 06/02/2017. 4. Candidiasis of intertriginous area of the inguinal region bilateral. A. Resolved. 5. Severe chronic anxiety disorder. A. Controlled with Abilify and clonazepam. 6. Depression. A. Controlled as of 06/21/2017. 7. Hypertension. 8. Generalized osteoarthritis. 9. Severe tremors. 10. Diverticular disease of the colon. 11. Irritable bowel syndrome. A. Stable. 12. Code status: DNR. 13. Asthma. A. Mild acute exacerbation as of 05/23/2017. B. Asymptomatic as of 06/21/2017. SUMMARY: The patient is an 86-year-old white female, who lives with her daughter. She is bed and ch air confined. She has a history of severe tremors, severe anxiety disorder, chronic pain from her ge neralized osteoarthritis. She has a history of irritable bowel syndrome and diverticular disease of the colon and has a DNR status. The patient was hospitalized at [facility] from 7-05/22/2017 for possible sepsis. The patient was much weaker than usual and was essentially bed con fined. She was transferred to [facility] on 05/22/2017 in an effort to try to imp rove her general strength such that she can get back to where she would tolerate sitting in a chair a nd assist with transfer. Upon admission, she was found to have a candidiasis of the inguinal area, h as stage 2 decubitus on the sacrum. The patient had a urinary tract infection while hospitalized at [facility] from Proteus mirabilis presenting with a sepsis-like picture and she had some r ectal bleeding from hemorrhoids. During the hospitalization, the urinary tract infection resolved. She had no subsequent bleeding from the hemorrhoids. The stage 2 decubitus resolved. This was cared for with just local cleansing and protection with a sacral pad. The candidiasis was managed with Di flucan and clotrimazole cream with resolution. Throughout her hospitalization, her lungs remained cl ear. She occasionally had a little wheezing from her asthma that was managed with her neb treatments . Her depression was well controlled. Her anxiety was well controlled. Her chronic tremors remaine d stable on her present medicines. They have physical therapy work with her where she was tolerating sitting up in a bedside chair, and got to where she was able to assist with transferring by pivoting , given that she was not ambulatory. Her condition stabilized, and by 06/21/2017, it is felt that he r condition has reached a plateau. It is felt that she could be now managed back in the home. She r emained bed and chair confined and could assist a little bit with pivoting, otherwise required maximu m assistance with transfers. She did well with a regular diet, supplementing with Ensure Enlive. DISPOSITION: The patient was discharged home with her daughter as primary caregiver. DIET: Regular diet supplemented with Ensure Enlive b.i.d. ACTIVITIES: Up in a chair as tolerated. We will arrange for home health to see patient and they can continue efforts with physical therapy in the home. HOME MEDICATIONS: Acetaminophen 325 mg 2 every 4 hours as needed, Abilify 15 mg daily, Dulcolax supp ository 10 mg 1 daily p.r.n., clonazepam 0.5 mg every 8 hours as needed for agitation, clotrimazole c ream applied to skin fold areas that are reddened b.i.d., DuoNeb by nebulizer every 4 hours as needed , Avapro 300 mg daily, paroxetine 30 mg daily, MiraLax 17 grams in 8 ounces of water daily, KCl 10 mE q daily, topiramate 50 mg b.i.d. FOLLOWUP: Home health will see patient and arrange in-home therapy. If possible, the patient will n eed to be seen in the office in 2-3 weeks. In 2 weeks, the patient will need a CBC and basic metabolic panel. CODE STATUS: DNR.
== END 2017-06-21 16:15 | disposition home or self-care (01) | DRG 948 ==
LOC: MADMS 15:31
PROVIDERS: ADMIT Family Medicine; ATTEND Family Medicine
DX: R53.1 Weakness (principal); L89.152 Pressure ulcer of sacral region, stage 2; J45.901 Unspecified asthma with (acute) exacerbation; E78.5 Hyperlipidemia, unspecified; K64.9 Unspecified hemorrhoids; K21.9 Gastro-esophageal reflux disease without esophagitis; I10 Essential (primary) hypertension; K57.30 Diverticulosis of large intestine without perforation or abscess without bleeding; K58.9 Irritable bowel syndrome, unspecified; M15.9 Polyosteoarthritis, unspecified; B37.9 Candidiasis, unspecified; F32.9 Major depressive disorder, single episode, unspecified; F41.9 Anxiety disorder, unspecified; R25.1 Tremor, unspecified; Z87.81 Personal history of (healed) traumatic fracture; Z88.5 Allergy status to narcotic agent; Z88.0 Allergy status to penicillin; Z88.2 Allergy status to sulfonamides; Z88.8 Allergy status to other drugs, medicaments and biological substances; Z66 Do not resuscitate; Z86.19 Personal history of other infectious and parasitic diseases
CPT/HCPCS: 36415; 80048; 80053; 84443; 85025; 90471; 90682; G0008; G8981-GP-CM; G8982-GP-CL; G8996-GN-CK; G8997-GN-CK; G8998-GN-CK; J1650; J7620; Q2036